=== PATIENT | male | born 1970 | race Caucasian/White ===

== ENCOUNTER 2017-12-15 10:59 | Emergency (ER) | payer OTHER ==
[2017-12-15 11:12] VITALS: BP 126/59; PULSE 84; RESP 18; TEMP 97.9
--- NOTE | 2017-12-15 11:42 | XR ---
EXAMINATION TYPE: XR foot complete LT DATE OF EXAM: 12/15/2017 COMPARISON: NONE HISTORY: 47-year-old male with pain after dropping tree stump on his foot this morning, lacerations t o the first and second toes. TECHNIQUE: 3 views FINDINGS: There is a markedly comminuted fracture of the shaft and tuft of the first distal phalanx. Associated soft tissue swelling. No additional acute fracture, subluxation, or dislocation is seen. Stellate sc lerosis in the calcaneal body suggestive of a bone island. IMPRESSION: Comminuted fracture of the shaft and tuft of the first distal phalanx.
[2017-12-15] MEDS ORDERED: ceFAZolin 1,000 MG VIAL IM STA (11:54)
[2017-12-15] MEDS ORDERED: DIPH,PERTUS(ACELL)TETVAC-LF 0.5 ML VIAL IM ONE (11:54)
--- NOTE | 2017-12-15 11:59 | ED ---
Lower Extremity Injury HPI - General Chief Complaint: Extremity Injury, Lower Stated Complaint: Toe injury Time Seen by Provider: 12/15/17 11:49 Source: patient, RN notes reviewed Mode of arrival: ambulatory Limitations: no limitations - History of Present Illness Initial Comments: This is a 47-year-old male who presents to the emergency department with chief complaint of left foot injury. Patient states that approximately an hour and half prior to arrival he was at work for the [employer]. He states that they were cutting logs and a tree fell and landed on his left foot. Patient complains of left great toe pain and bleeding. States he is not up-to-date with his tetanus vaccination. States he is able to bear weight but has to hobble around. Denies any other injuries or trauma. Denies fever, chills, chest pain, shortness of breath, abdominal pain, nausea or vomiting, constipation or diarrhea, dysuria or hematuria, numbness or tingling, headache or vision changes. - Related Data Previous Rx's Medication Instructions Recorded Acetaminophen-Codeine 300-30mg 1 tab PO Q4H PRN #12 tablet 12/15/17 [Tylenol #3] Cephalexin [Keflex] 500 mg PO Q12HR #20 cap 12/15/17 Allergies Allergy/AdvReac Type Severity Reaction Status Date / Time No Known Allergies Allergy Verified 12/15/17 11:11 Review of Systems ROS Statement: Those systems with pertinent positive or pertinent negative responses have been documented in the HPI. ROS Other: All systems not noted in ROS Statement are negative. Past Medical History Past Medical History: No Reported History History of Any Multi-Drug Resistant Organisms: None Reported Past Surgical History: No Surgical Hx Reported Past Psychological History: No Psychological Hx Reported Smoking Status: Never smoker Past Alcohol Use History: None Reported Past Drug Use History: None Reported General Exam - General Exam Comments Initial Comments: General: Awake and alert, well-developed; in no apparent distress. HEENT: Head atraumatic, normocephalic. Pupils are equal, round and reactive to light. Extraocular movements intact. Oropharynx moist without erythema or exudate. Neck: Supple. Normal ROM. Cardiovascular: Regular rate and rhythm. No murmurs, rubs or gallops. Chest symmetrical. Respiratory: Lungs clear to auscultation bilaterally. No wheezes, rales or rhonchi. Normal respiratory effort with no use of accessory muscles. Musculoskeletal: Limited range of motion of the left great toe due to pain. There is swelling and bruising of the dorsal great toe. Toenail is opaque with bruising noted underneath. Bleeding coming from the base of the nail where the cuticle has been avulsed from the skin. Skin: [place], warm and dry without rashes. Neurological: Alert and oriented x3. CN II-XII grossly intact. Speech is fluent and answers are appropriate. No focal neuro deficits. Psychiatric: Normal mood and affect. No overt signs of depression or anxiety noted. Limitations: no limitations Course Vital Signs 12/15/17 11:08 Temperature 97.9 F Pulse Rate 84 Respiratory 18 Rate Blood Pressure 126/59 O2 Sat by Pulse 99 Oximetry Procedures - Orthopedic Splinting/Casting Injury #1 Side: left Lower Extremity Injury Location: toe Lower Extremity Immobilizer: sammy tape Medical Decision Making - Medical Decision Making This is a 47-year-old male who presented to the emergency department for evaluation of left foot injury. Patient complains of left great toe pain and bleeding. X-ray revealed fractures of the tuft and shaft of the distal phalanx of the left great toe. Cuticle at the base of the left great toe has been avulsed and there is active bleeding. Patient treated as an open fracture with Kefzol. He was also made up-to-date with his tetanus vaccination. Patient will be given prescriptions for Keflex and Tylenol with Codeine for pain. Wound was cleansed and a dressing was placed. Toes were sammy taped. Patient is neurovascularly intact. He is to follow-up with Dr. Sousa, orthopedics within 1-2 days. Findings and plan were discussed with patient who is in agreement. All questions were answered. Patient is in no acute distress and will be discharged home. - Radiology Data Radiology results: report reviewed X-ray left foot findings: There is a markedly comminuted fracture of the shaft in tuft of the first distal phalanx. Associated soft tissue swelling. No additional acute fracture, subluxation or dislocation is seen. Stellate sclerosis in the calcaneal body suggestive of a bone island. Impression: Comminuted fracture of the shaft in tuft of the first distal phalanx. Disposition Clinical Impression: Open fracture of left great toe Disposition: HOME SELF-CARE Condition: Good Instructions: Toe Fracture (ED) Additional Instructions: Please follow-up with Dr. Sousa, orthopedics within 1-2 days. Please try not to bear weight on that toe. Please take medications as prescribed. Please follow up with primary care provider within 1-2 days. Return to emergency department if symptoms should worsen or any concerns arise. Prescriptions: Acetaminophen-Codeine 300-30mg [Tylenol #3] 1 tab PO Q4H PRN #12 tablet PRN Reason: Pain Cephalexin [Keflex] 500 mg PO Q12HR #20 cap Referrals: Jerman Garcia DO [Primary Care Provider] - 1-2 days Brian Sousa MD [STAFF PHYSICIAN] - 1-2 days Time of Disposition: 12:23
== END 2017-12-15 12:39 | disposition home or self-care (01) ==
LOC: EC 10:59
DX: S92.422B Displaced fracture of distal phalanx of left great toe, initial encounter for open fracture (principal); Z23 Encounter for immunization; W20.8XXA Other cause of strike by thrown, projected or falling object, initial encounter; Y92.410 Unspecified street and highway as the place of occurrence of the external cause; Y93.89 Activity, other specified; Y99.0 Civilian activity done for income or pay
CPT/HCPCS: 73630; 90715; 99283; 96372; 90471; J0690